=== PATIENT | female | born 1985 | race Caucasian/White ===

== ENCOUNTER 2016-06-16 02:09 | Emergency (ER) | payer OTHER, SELFPAY ==
[2016-06-16 02:25] VITALS: O2SAT 100
[2016-06-16] MEDS ORDERED: ATARAX 25 MG PO ONE (02:30)
[2016-06-16] MEDS ORDERED: ATARAX 25 MG ONE (02:35)
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
[2016-06-16 03:05] VITALS: BP 115/60; PULSE 80
== END 2016-06-16 03:00 | disposition home or self-care (01) ==
LOC: ED 02:09
DX: B86 Scabies (principal)
CPT/HCPCS: 99281; 99283; A9270-GY

== ENCOUNTER 2016-09-17 22:16 | Observation (INO) | payer OTHER, SELFPAY ==
[2016-09-17] MEDS ORDERED: Sodium Chloride 0.9% 1000 ML 1,000 ML IV STA (22:48)
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
[2016-09-17] MEDS ORDERED: Sodium Chloride 0.9% 1000 ML 1,000 ML ONE (23:07)
[2016-09-17 23:12] LABS: A-aADO2 -5; ARTERIAL BLD GAS O2 SATURATION 99.1 % (95-100); ARTERIAL BLOOD GAS BASE EXCESS 0.6 (-2.0-2.0); ARTERIAL BLOOD GAS FIO2 21 %; ARTERIAL BLOOD GAS PO2 111 mmHg (75-100); ARTERIAL BLOOD GAS pH 7.45 (7.35-7.45)
[2016-09-17 23:14] LABS: BASOPHIL % 0.4 % (0.0-0.4); Eosinophil % 2.6 % (0.00-5.0); Lymphocytes % 30.8 % (24.0-44.0); Mean Cell Volume 90.1 fl (78-100); Mean Corpuscular Hemoglobin 29.8 pg (26-32); Mean Platelet Volume 10.1 fl (6-9.5); Monocytes % 8.2 % (0.0-12.0); Platelet Count 225 K/mm3 (150-450); Red Blood Count 4.13 M/mm3 (4.1-5.4); Red Cell Distribution Width 12.2 % (11.5-14.0); White Blood Count 9.1 K/mm3 (4.0-10.5)
[2016-09-17 23:34] LABS: Bilirubin NEGATIVE (NEGATIVE); Collection Type CATH; Glucose NEGATIVE (NEGATIVE); Leukocyte Esterase NEGATIVE (NEGATIVE)
[2016-09-17 23:35] LABS: ADD URINE CULTURE? NO (NO); Blood TRACE HEMOLYZED Ery/ul (0-5); COMPLETE URINE MICROSCOPIC? YES; Epithelial Cells RARE /HPF (FEW); Mucus SLIGHT /HPF (NEGATIVE); WBC 0-2 /HPF (0-5)
[2016-09-17 23:38] LABS: ALKALINE PHOSPHATASE 37 U/L (46-116); ANION GAP 15.4 MEQ/L (5-15); BLOOD UREA NITROGEN 11 mg/dL (9-20); CHLORIDE 105 mEq/L (98-107); Carbon Dioxide 24.6 mEq/L (21-32); ETHYL ALCOHOL < 0.010 % (0.00-0.01); Glucose 91 MG/DL (70-110); Potassium 3.5 mEq/L (3.5-5.1); SGOT/AST 13 U/L (15-37); SGPT/ALT 10 U/L (12-78); SODIUM 142 mEq/L (136-145); Total Protein 6.8 gm/dL (6.4-8.2)
[2016-09-17 23:46] LABS: ACETAMINOPHEN < 2.0 ug/ml (10-30)
[2016-09-18] MEDS ORDERED: TYLENOL 325 MG PO PRN (00:31)
[2016-09-18] MEDS ORDERED: Zofran 4 MG/2 ML VIAL IV ONE (00:37)
[2016-09-18] MEDS: Sodium Chloride 0.9% 1000 ML 1,000 ML IV SCH ×2 (02:18→09:27)
[2016-09-18] MEDS ORDERED: Zofran 4 MG/2 ML VIAL IV PRN (02:21)
[2016-09-18 03:41] LABS: ACETAMINOPHEN < 2.0 ug/ml (10-30)
[2016-09-18 07:21] VITALS: O2SAT 100
[2016-09-18 08:27] VITALS: BP 104/58; PULSE 63
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
[2016-09-18] MEDS ORDERED: NON-FORMULARY ITEM (Citalopram Hydrobromide [Celexa] 10 MG) PO SCH (10:00)
[2016-09-18] MEDS ORDERED: ceLEXa 20 MG PO SCH (10:00)
== END 2016-09-18 10:33 | disposition left against medical advice (07) ==
LOC: ED 22:16 → UNDOADMOB 09-18 01:20 → ICU 09-18 01:20 → UNDODISOB 09-18 10:33
PROVIDERS: ADMIT Family Medicine; ATTEND Family Medicine
DX: T42.4X1A Poisoning by benzodiazepines, accidental (unintentional), initial encounter (principal); F41.8 Other specified anxiety disorders
CPT/HCPCS: 36000; 36415; 36600; 80053; 80307; 81000; 82375; 82803; 84703; 85025; 93005; 93268; 96360; 99285; G0378; G0481; P9612; A9270-GY

== ENCOUNTER 2016-10-25 21:45 | Emergency (ER) | payer OTHER, SELFPAY ==
[2016-10-25] MEDS ORDERED: Tylenol #3 Tablet PO ONE (22:09)
[2016-10-25 22:14] VITALS: PULSE 78; O2SAT 98
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
[2016-10-25] MEDS ORDERED: Tylenol #3 Tablet ONE (22:18)
[2016-10-25 23:06] VITALS: BP 120/68
--- NOTE | 2016-10-26 08:36 | XRAY ---
Indication: Pain following crush injury. Comparison: None 3 views of the left ankle demonstrates normal bones, articulation, and soft tissues.
--- NOTE | 2016-10-26 08:37 | XRAY ---
Indication: Pain following crush injury. Comparison: None 3 views nonweightbearing views of the left foot demonstrates mild degenerative changes of the first metatarsal cuneiform articulation. No other bony, articular, or soft tissue abnormalities.
== END 2016-10-25 23:07 | disposition home or self-care (01) ==
LOC: ED 21:45
DX: S90.02XA Contusion of left ankle, initial encounter (principal); S90.32XA Contusion of left foot, initial encounter; W22.8XXA Striking against or struck by other objects, initial encounter
CPT/HCPCS: 73610; 73630; 99284; A9270-GY

== ENCOUNTER 2018-02-26 15:49 | Emergency (ER) | payer OTHER, SELFPAY ==
[2018-02-26 16:03] VITALS: BP 137/84; PULSE 90; O2SAT 100
--- NOTE | 2018-02-26 16:14 | ERPHSYRPT ---
- History of Present Illness Time Seen by Provider: 02/26/18 16:00 Source: patient Exam Limitations: no limitations Patient Subjective Stated Complaint: pt reports sore throat and right ear pain for 3 days. Triage Nursing Assessment: pt is aox3, pupils perrl, afebrile, resps easy and non labored, radial pulses strong and equal, skin pink warm dry. redness noted to the right external ear and canal with pain. redness also noted to the throat. Physician History: 32 y/o white female presents with 2 to 3 days of right earache and sore throat. pt does clean ear canals with q tips. no fever. mild cough. Timing/Duration: gradual onset ENT Location: ear (R), throat Prearrival Treatment: over the counter meds Modifying Factors: Improves With: nothing Associated Symptoms: ear pain (R), sore throat Allergies/Adverse Reactions: No Known Drug Allergies Allergy (Verified 10/25/16 22:06) Home Medications: Alprazolam [Xanax] 0.5 mg PO TID 09/17/16 [History] Citalopram Hydrobromide [Celexa] 20 mg PO DAILY 09/17/16 [History] Hydrocodone Bit/Acetaminophen [[place] 5-325 Tablet] 1 each PO Q6H PRN PRN [History] Hx Tetanus, Diphtheria Vaccination/Date Given: No Hx Influenza Vaccination/Date Given: No Hx Pneumococcal Vaccination/Date Given: No Immunizations Up to Date: Yes - Review of Systems Constitutional: No Symptoms Eyes: No Symptoms Ears, Nose, & Throat: Ear Pain (right), Throat Pain Respiratory: Cough (mild), Dyspnea, Stridor, Wheezing Cardiac: No Symptoms Abdominal/Gastrointestinal: No Symptoms Genitourinary Symptoms: No Symptoms Musculoskeletal: No Symptoms Skin: No Symptoms Neurological: No Symptoms Psychological: No Symptoms Endocrine: No Symptoms Hematologic/Lymphatic: No Symptoms Immunological/Allergic: No Symptoms All Other Systems: Reviewed and Negative - Past Medical History Pertinent Past Medical History: Yes Neurological History: No Pertinent History ENT History: No Pertinent History Cardiac History: No Pertinent History Respiratory History: No Pertinent History Endocrine Medical History: No Pertinent History Musculoskeletal History: No Pertinent History GI Medical History: No Pertinent History History: No Pertinent History Psycho-Social History: Anxiety, Depression Female Reproductive Disorders: No Pertinent History - Past Surgical History Past Surgical History: Yes Neuro Surgical History: No Pertinent History Cardiac: No Pertinent History Respiratory: No Pertinent History Gastrointestinal: No Pertinent History Genitourinary: No Pertinent History Musculoskeletal: No Pertinent History Female Surgical History: Breast Implant Other Surgical History: breast implants - Social History Smoking Status: Current every day smoker How long have you smoked: 15 YRS Exposure to second hand smoke: No Drug Use: none Patient Lives Alone: No - Female History Hx Last Menstrual Period: 01/26/18 Hx Now: (unk) - Nursing Vital Signs Nursing Vital Signs: Initial Vital Signs Temperature 99.5 F 02/26/18 15:53 Pulse Rate 90 02/26/18 15:53 Respiratory Rate 20 02/26/18 15:53 Blood Pressure 137/84 02/26/18 15:53 O2 Sat by Pulse Oximetry 100 02/26/18 15:53 Pain Scale Pain Intensity 10 - Physical Exam General Appearance: mild distress, alert, anxiety Eye Exam: bilateral eye: normal inspection, PERRL, EOMI Ear Exam: right ear: auricle normal, erythema, foreign body (strands of cotton) , swelling, tenderness, TM red, left ear: canal normal, TM normal Nasal Exam: normal inspection Throat Exam: normal, moist mucus membranes, pharynx tenderness Neck Exam: normal inspection, non-tender, supple, full range of motion Cardiovascular/Respiratory Exam: chest non-tender, normal breath sounds, regular rate/rhythm, heart sounds normal Abdominal Exam: non-tender, soft, no organomegaly, no hernia, No guarding, No tenderness Neurologic Exam: alert, oriented x 3, cooperative, 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 purchase debrox over the counter ear solution to irrigate out your right ear. follow up with primary doctor for persistent symptoms Prescriptions: Amoxicillin 500 mg Cap [Amoxil 500 mg] 500 mg PO TID #30 capsule Hydrocodone Bit/Acetaminophen [Hydrocodone-Acetaminophen Soln] 10 ml PO Q6H # 120 ml Prednisone 10 mg [Deltasone 10 mg] 10 mg PO TID #12 tablet
== END 2018-02-26 16:31 | disposition home or self-care (01) ==
LOC: ED 15:49
DX: H66.91 Otitis media, unspecified, right ear (principal); J02.9 Acute pharyngitis, unspecified; T16.1XXA Foreign body in right ear, initial encounter; Z79.899 Other long term (current) drug therapy
CPT/HCPCS: 99283

== ENCOUNTER 2018-05-15 14:55 | Emergency (ER) | payer OTHER ==
[2018-05-15] MEDS ORDERED: TYLENOL 325 MG PO STA (15:11)
[2018-05-15] MEDS ORDERED: ZOFRAN ODT 4 MG PO ONE (15:14)
[2018-05-15] MEDS ORDERED: TYLENOL 325 MG ONE (15:31)
[2018-05-15] MEDS ORDERED: ZOFRAN ODT 4 MG ONE (15:31)
[2018-05-15 15:32] LABS: BASOPHIL % 0.2 % (0.0-0.4); Basophil (Absolute #) 0.01 (0-0.4); Eosinophil % 0.4 % (0.00-5.0); Eosinophil (Absolute #) 0.02 (0-0.5); Granulocyte Absolute (ANC) 4.81 (1.4-6.9); Granulocytes % 88.1 % (36.0-66.0); Hemoglobin 12.3 gm/dl (12.0-16.0); Lymphocyte (Absolute #) 0.34 (1.0-4.6); Lymphocytes % 6.2 % (24.0-44.0); Mean Cell Volume 89.4 fl (78-100); Mean Corpuscular Hemoglobin 29.7 pg (26-32); Mean Corpuscular Hgb Concent. 33.2 g/dl (32-36); Mean Platelet Volume 9.6 fl (6-9.5); Monocyte (Absolute #) 0.28 (0.0-1.3); Monocytes % 5.1 % (0.0-12.0); Platelet Count 166 K/mm3 (150-450); Red Blood Count 4.14 M/mm3 (4.1-5.4); White Blood Count 5.5 K/mm3 (4.0-10.5)
[2018-05-15 15:44] LABS: ALBUMIN 3.8 g/dL (3.5-5.0); ALKALINE PHOSPHATASE 48 U/L (38-126); BLOOD UREA NITROGEN 16 mg/dL (7-17); CHLORIDE 103 mmol/L (98-107); Calcium 8.5 mg/dL (8.4-10.2); Carbon Dioxide 28 mmol/L (22-30); Creatinine 1 0.84 mg/dL (0.52-1.04); Glucose 90 mg/dL (74-106); Potassium 4.5 mmol/L (3.5-5.1); SGOT/AST 37 U/L (14-36); SGPT/ALT 22 U/L (0-35); SODIUM 138 mmol/L (137-145); Total Protein 6.6 g/dL (6.3-8.2)
[2018-05-15 15:54] LABS: Group A Strep NEGATIVE (NEGATIVE)
[2018-05-15 15:56] LABS: Slide Review 1 YES
[2018-05-15 16:00] LABS: INFLUENZA A POSITIVE (NEGATIVE); INFLUENZA B NEGATIVE (NEGATIVE); RESPIRATORY SYNCTIAL VIRUS NEGATIVE (Negative)
[2018-05-15] MEDS ORDERED: Tamiflu 75MG Capsule PO ONE ×2 (16:03→16:11)
[2018-05-15 16:11] VITALS: PULSE 107; O2SAT 100
[2018-05-15 17:37] LABS: Appearance SLIGHTLY CLOUDY (CLEAR); Bilirubin NEGATIVE (NEGATIVE); Blood SMALL Ery/ul (0-5); Epithelial Cells FEW /HPF (FEW); Glucose NEGATIVE (NEGATIVE); Ketones SMALL (NEGATIVE); Leukocyte Esterase NEGATIVE (NEGATIVE); Mucus SLIGHT /HPF (NEGATIVE); Nitrite NEGATIVE (NEGATIVE); Protein,Urine Dip 30 (Negative); Specific Gravity 1.026 (1.005-1.025); Urobilinogen 2 mg/dL (0-1)
[2018-05-15 17:39] LABS: Bacteria NONE SEEN /HPF (NEGATIVE)
--- NOTE | 2018-05-15 17:49 | ERPHSYRPT ---
- History of Present Illness Source: patient Exam Limitations: no limitations Patient Subjective Stated Complaint: pt here for fever started yesterday, she vomited x1 today and states she has to strain to void, Triage Nursing Assessment: pt alert,walked in, resp easy, skin w/d/p has dressing to right ear from surgery on wednesday Physician History: Pt is a 33 y/o female that presented to the ED with complains of fever for two days. Pt states, had R ear surgery (Cochlear implant), on Wednesday, and she is taking keflex prescribed by ENT. She started developing fever for the last couple of days, and presented to the ER. Pt states, her and child have fever as well, and she wondered if she got "something" from them. No SOB or cough. No change in ear discharge. No N/V/D or abdominal pain. No dysuria, frequency and urgency. 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 Associated Symptoms: denies symptoms Allergies/Adverse Reactions: No Known Drug Allergies Allergy (Verified 05/15/18 15:07) Home Medications: Cephalexin Mh 500 mg [Keflex 500 mg] 500 mg BID 05/15/18 [History] Hydrocodone/Acetaminophen [Hydrocodone-Acetamin 7.5-325] 1 tab QID 05/15/18 [ History] Promethazine HCl 25 mg [Phenergan 25 mg] 25 mg DAILY 05/15/18 [History] Quetiapine Fumarate 50 mg DAILY 05/15/18 [History] diazePAM [Diazepam] 10 mg DAILY 05/15/18 [History] Hx Tetanus, Diphtheria Vaccination/Date Given: No Hx Influenza Vaccination/Date Given: No Hx Pneumococcal Vaccination/Date Given: No Immunizations Up to Date: Yes - Review of Systems Constitutional: Fever Eyes: No Symptoms Ears, Nose, & Throat: Ear Pain (R secondary to surgery) Respiratory: No Cough, No Dyspnea Cardiac: No Chest Pain, No Edema, No Syncope Abdominal/Gastrointestinal: No Abdominal Pain, No Nausea, No Vomiting, No Diarrhea Genitourinary Symptoms: No Dysuria Musculoskeletal: No Back Pain, No Neck Pain Neurological: No Dizziness, No Focal Weakness, No Sensory Changes - Past Medical History Pertinent Past Medical History: Yes Neurological History: No Pertinent History ENT History: No Pertinent History Cardiac History: No Pertinent History Respiratory History: No Pertinent History Endocrine Medical History: No Pertinent History Musculoskeletal History: No Pertinent History GI Medical History: No Pertinent History History: No Pertinent History Psycho-Social History: Anxiety, Depression Female Reproductive Disorders: No Pertinent History - Past Surgical History Past Surgical History: Yes Neuro Surgical History: No Pertinent History Cardiac: No Pertinent History Respiratory: No Pertinent History Gastrointestinal: No Pertinent History Genitourinary: No Pertinent History Musculoskeletal: No Pertinent History Female Surgical History: Breast Implant Other Surgical History: breast implants, right ear surgery - Social History Smoking Status: Current every day smoker How long have you smoked: 15 YRS Exposure to second hand smoke: Yes Drug Use: none Patient Lives Alone: No - Female History Hx Last Menstrual Period: wednesday Hx Now: No - Nursing Vital Signs Nursing Vital Signs: Initial Vital Signs Temperature 100.6 F 05/15/18 15:02 Pulse Rate 116 H 05/15/18 15:02 Respiratory Rate 16 05/15/18 15:02 Blood Pressure 116/64 05/15/18 15:02 O2 Sat by Pulse Oximetry 96 05/15/18 15:02 Pain Scale Pain Intensity 0 - Physical Exam General Appearance: mild distress Eye Exam: PERRL/EOMI ENT Exam: No pharyngeal erythema, No tonsillar exudate Neck Exam: supple, full range of motion, No meningismus Respiratory Exam: normal breath sounds, lungs clear, no respiratory distress Cardiovascular/Chest Exam: normal heart sounds, regular rate/rhythm, No murmur, No edema Gastrointestinal/Abdominal Exam: soft, non tender, no distention Extremity Exam: non-tender, normal range of motion, normal inspection, normal capillary refill Neurologic Exam: alert, oriented x 3, 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, 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, normal mood/affect, sensation nml, No motor deficits SpO2: 100 - Course Nursing assessment & vital signs reviewed: Yes - Radiology Exams Chest X-ray Interpretation: Interpreted by me (No PNA, clear chest) Ordered Tests: Active Orders 24 hr Category Date Time Status CHEST 2 VIEWS (PA AND LAT) Stat Exams 05/15/18 15:12 Taken BLOOD CULTURE Stat Lab 05/15/18 15:45 Received CBC W DIFF Stat Lab 05/15/18 15:30 Completed CMP Stat Lab 05/15/18 15:25 Completed CULTURE,URINE Stat Lab 05/15/18 17:33 Received HCG,QUALITATIVE URINE Stat Lab 05/15/18 17:33 Completed Lactic Acid Stat Lab 05/15/18 15:11 Completed UA W/RFX UR CULTURE Stat Lab 05/15/18 17:33 Completed Medication Summary Discontinued Medications Generic Name Dose Route Start Last Admin Trade Name Kaylah PRN Reason Stop Dose Admin Acetaminophen 975 mg 05/15/18 15:11 05/15/18 15:31 Tylenol 325 Mg PO 05/15/18 15:12 975 mg STAT STA Administration Acetaminophen Confirm 05/15/18 15:31 Tylenol 325 Mg Administered 05/15/18 15:32 Dose 975 mg .ROUTE .STK-MED ONE Ondansetron HCl 4 mg 05/15/18 15:14 05/15/18 15:32 Zofran Odt 4 Mg PO 05/15/18 15:15 4 mg STAT ONE Administration Ondansetron HCl Confirm 05/15/18 15:31 Zofran Odt 4 Mg Administered 05/15/18 15:32 Dose 4 mg .ROUTE .STK-MED ONE Oseltamivir Phosphate 75 mg 05/15/18 16:03 05/15/18 16:13 Tamiflu 75mg Capsule PO 05/15/18 16:04 75 mg STAT ONE Administration Oseltamivir Phosphate Confirm 05/15/18 16:11 Tamiflu 75mg Capsule Administered 05/15/18 16:12 Dose 75 mg PO .STK-MED ONE Lab/Rad Data: Laboratory Result Diagrams 05/15/18 15:30 05/15/18 15:25 Laboratory Results 05/15/18 05/15/18 05/15/18 Range/Units 17:33 17:33 15:30 WBC 5.5 (4.0-10.5) K/mm3 RBC 4.14 (4.1-5.4) M/mm3 Hgb 12.3 (12.0-16.0) gm/dl Hct 37.0 (35-47) % MCV 89.4 (78-100) fl MCH 29.7 (26-32) pg MCHC 33.2 (32-36) g/dl RDW 12.0 (11.5-14.0) % Plt Count 166 (150-450) K/mm3 MPV 9.6 H (6-9.5) fl Gran % 88.1 H (36.0-66.0) % Eos # (Auto) 0.02 (0-0.5) Absolute Lymphs (auto) 0.34 L (1.0-4.6) Absolute Monos (auto) 0.28 (0.0-1.3) Lymphocytes % 6.2 L (24.0-44.0) % Monocytes % 5.1 (0.0-12.0) % Eosinophils % 0.4 (0.00-5.0) % Basophils % 0.2 (0.0-0.4) % Absolute Granulocytes 4.81 (1.4-6.9) Basophils # 0.01 (0-0.4) Sodium (137-145) mmol/L Potassium (3.5-5.1) mmol/L Chloride (98-107) mmol/L Carbon Dioxide (22-30) mmol/L Anion Gap (5-15) MEQ/L BUN (7-17) mg/dL Creatinine (0.52-1.04) mg/dL Estimated GFR ML/MIN Glucose (74-106) mg/dL Lactic Acid (0.4-2.0) Calcium (8.4-10.2) mg/dL Total Bilirubin (0.2-1.3) mg/dL AST (14-36) U/L ALT (0-35) U/L Alkaline Phosphatase (38-126) U/L Serum Total Protein (6.3-8.2) g/dL Albumin (3.5-5.0) g/dL Urine Color YELLOW (YELLOW) Urine Appearance SLIGHTLY CLOUDY (CLEAR) Urine pH 6.0 (5-6) Ur Specific [place] 1.026 (1.005-1.025) Urine Protein 30 (Negative) Urine Ketones SMALL (NEGATIVE) Urine Blood SMALL (0-5) Bacilio/ul Urine Nitrite NEGATIVE (NEGATIVE) Urine Bilirubin NEGATIVE (NEGATIVE) Urine Urobilinogen 2 (0-1) mg/dL Ur Leukocyte Esterase NEGATIVE (NEGATIVE) Urine WBC (Auto) 3-5 (0-5) /HPF Urine RBC (Auto) 6-10 (0-2) /HPF U Epithel Cells (Auto) FEW (FEW) /HPF Urine Bacteria (Auto) NONE SEEN (NEGATIVE) /HPF Urine Mucus (Auto) SLIGHT (NEGATIVE) /HPF Urine Culture Reflexed YES (NO) Urine Glucose NEGATIVE (NEGATIVE) mg/dL Urine HCG, Qual NEGATIVE (Negative) Influenza Type A Ag (NEGATIVE) Influenza Type B Ag (NEGATIVE) RSV (PCR) (Negative) Group A Strep Antibody (NEGATIVE) Slides for Path Review YES 05/15/18 05/15/18 05/15/18 Range/Units 15:25 15:25 15:11 WBC (4.0-10.5) K/mm3 RBC (4.1-5.4) M/mm3 Hgb (12.0-16.0) gm/dl Hct (35-47) % MCV (78-100) fl MCH (26-32) pg MCHC (32-36) g/dl RDW (11.5-14.0) % Plt Count (150-450) K/mm3 MPV (6-9.5) fl Gran % (36.0-66.0) % Eos # (Auto) (0-0.5) Absolute Lymphs (auto) (1.0-4.6) Absolute Monos (auto) (0.0-1.3) Lymphocytes % (24.0-44.0) % Monocytes % (0.0-12.0) % Eosinophils % (0.00-5.0) % Basophils % (0.0-0.4) % Absolute Granulocytes (1.4-6.9) Basophils # (0-0.4) Sodium 138 (137-145) mmol/L Potassium 4.5 (3.5-5.1) mmol/L Chloride 103 (98-107) mmol/L Carbon Dioxide 28 (22-30) mmol/L Anion Gap 11.0 (5-15) MEQ/L BUN 16 (7-17) mg/dL Creatinine 0.84 (0.52-1.04) mg/dL Estimated GFR > 60.0 ML/MIN Glucose 90 (74-106) mg/dL Lactic Acid 0.8 (0.4-2.0) Calcium 8.5 (8.4-10.2) mg/dL Total Bilirubin 0.30 (0.2-1.3) mg/dL AST 37 H (14-36) U/L ALT 22 (0-35) U/L Alkaline Phosphatase 48 (38-126) U/L Serum Total Protein 6.6 (6.3-8.2) g/dL Albumin 3.8 (3.5-5.0) g/dL Urine Color (YELLOW) Urine Appearance (CLEAR) Urine pH (5-6) Ur Specific [place] (1.005-1.025) Urine Protein (Negative) Urine Ketones (NEGATIVE) Urine Blood (0-5) Bacilio/ul Urine Nitrite (NEGATIVE) Urine Bilirubin (NEGATIVE) Urine Urobilinogen (0-1) mg/dL Ur Leukocyte Esterase (NEGATIVE) Urine WBC (Auto) (0-5) /HPF Urine RBC (Auto) (0-2) /HPF U Epithel Cells (Auto) (FEW) /HPF Urine Bacteria (Auto) (NEGATIVE) /HPF Urine Mucus (Auto) (NEGATIVE) /HPF Urine Culture Reflexed (NO) Urine Glucose (NEGATIVE) mg/dL Urine HCG, Qual (Negative) Influenza Type A Ag POSITIVE (NEGATIVE) Influenza Type B Ag NEGATIVE (NEGATIVE) RSV (PCR) NEGATIVE (Negative) Group A Strep Antibody NEGATIVE (NEGATIVE) Slides for Path Review - Progress Progress: unchanged Progress Note: 05/15/18 17:52 Pt had Influenza A positive test. All other work up was negative. Tamiflu 75 mg was given in the ED. Pt should continue her ABX as ordered by ENT, and take 5 days of Tamiflu. A prescription will be e-scribed. Pt should f/u with PCP next week. Discussed with : Mingo Will see patient in: office Counseled pt/family regarding: need for follow-up - Departure Time of Disposition: 17:54 Departure Disposition: Home Clinical Impression: Influenza A Condition: Stable Critical Care Time: No Referrals: RUDDY ZHENG [Primary Care Provider] - Additional Instructions: Take meds as ordered. F/U with PCP next week. Prescriptions: Oseltamivir 75 mg [Tamiflu 75MG Capsule] 75 mg PO BID 5 Days #10 cap
[2018-05-15 17:54] VITALS: BP 111/73
--- NOTE | 2018-05-15 21:58 | XRAY ---
Indication: Fever. Comparison: None PA/lateral chest demonstrates subtle left mid to lower lung interstitial alveolar opacity and small effusion. Remaining heart and right lung normal. Bony thorax intact with mild dextroscoliosis. Comment: Left lung findings not reported on preliminary interpretation by the ER clinician. Telephone report given to Dr. Burnett at 2154 hrs. on May 15, 2018.
== END 2018-05-15 18:10 | disposition home or self-care (01) ==
LOC: ED 14:55
DX: J10.1 Influenza due to other identified influenza virus with other respiratory manifestations (principal); F41.8 Other specified anxiety disorders
CPT/HCPCS: 36415; 71046; 80053; 81001; 83605; 84703; 85025; 87040; 87086; 87631; 87651; 99284; Q0162; A9270-GY

== ENCOUNTER 2018-08-15 15:42 | Emergency (ER) | payer OTHER ==
[2018-08-15 16:43] VITALS: BP 133/86; PULSE 94; O2SAT 100
--- NOTE | 2018-08-15 16:56 | ERPHSYRPT ---
- History of Present Illness Time Seen by Provider: 08/15/18 16:24 Source: patient Exam Limitations: clinical condition Patient Subjective Stated Complaint: Patient states she has had a sore throat since last night Triage Nursing Assessment: Ceaasr ambulated into ER complaint of sore throat since last Wednesday Physician History: PATIENT COMPLAINS OF SORETHROAT FOR 2-3 DAYS. DENIES FEVER, CHILLS, DIFFICULTY BREATHING OR SWALLOWING. Timing/Duration: gradual onset Severity: moderate ENT Location: throat Prearrival Treatment: no prearrival treatment Modifying Factors: Improves With: nothing Associated Symptoms: denies symptoms Allergies/Adverse Reactions: No Known Drug Allergies Allergy (Verified 08/15/18 16:10) Home Medications: Quetiapine Fumarate 50 mg DAILY 05/15/18 [History] diazePAM [Diazepam] 10 mg DAILY 05/15/18 [History] Hx Tetanus, Diphtheria Vaccination/Date Given: No Hx Influenza Vaccination/Date Given: No Hx Pneumococcal Vaccination/Date Given: No Immunizations Up to Date: Yes - Review of Systems Constitutional: No Symptoms Eyes: No Symptoms Ears, Nose, & Throat: Throat Pain Respiratory: No Symptoms Cardiac: No Symptoms Neurological: No Symptoms Psychological: No Symptoms Endocrine: No Symptoms - Past Medical History Pertinent Past Medical History: Yes Neurological History: No Pertinent History ENT History: No Pertinent History Cardiac History: No Pertinent History Respiratory History: No Pertinent History Endocrine Medical History: No Pertinent History Musculoskeletal History: No Pertinent History GI Medical History: No Pertinent History History: No Pertinent History Psycho-Social History: No Pertinent History Female Reproductive Disorders: No Pertinent History - Past Surgical History Past Surgical History: No Neuro Surgical History: No Pertinent History Cardiac: No Pertinent History Respiratory: No Pertinent History Gastrointestinal: No Pertinent History Genitourinary: No Pertinent History Musculoskeletal: No Pertinent History Female Surgical History: No Pertinent History Other Surgical History: patient reports step throat in May this year - Social History Smoking Status: Current every day smoker How long have you smoked: 13 years Exposure to second hand smoke: Yes Drug Use: none Patient Lives Alone: No - Female History Hx Last Menstrual Period: 07/29/2018 Hx Now: No - Nursing Vital Signs Nursing Vital Signs: Initial Vital Signs Temperature 99.2 F 08/15/18 15:58 Pulse Rate 99 H 08/15/18 15:58 Respiratory Rate 18 08/15/18 15:58 O2 Sat by Pulse Oximetry 98 08/15/18 15:58 Pain Scale Pain Intensity 8 - Physical Exam SpO2: 100 Lab/Rad Data: Laboratory Results 08/15/18 Range/Units Unknown Group A Strep Antibody POSITIVE (NEGATIVE) - Progress Progress Note: 08/15/18 16:53 STREP SCREEN POSITIVE Counseled pt/family regarding: lab results, need for follow-up - Departure Departure Disposition: Home Clinical Impression: STREP PHARYNGITIS Condition: Stable Critical Care Time: No Referrals: RUDDY ZHENG [Primary Care Provider] - Additional Instructions: ANTIBIOTIC AUGMENTIN 875MG TWICE DAILY FOR 10 DAYS. TYLENOL OR MOTRIN FOR PAIN OR FEVER. FOLLOWUP WITH YOUR PRIMARY CARE PROVIDER FOR EVALUATION IN 1 WEEK. Prescriptions: Amox Tr/Potass Clav. 875 mg [Augmentin 875-125 Tablet] 875 mg PO BID #20 tablet
== END 2018-08-15 17:06 | disposition home or self-care (01) ==
LOC: ED 15:42
DX: J02.0 Streptococcal pharyngitis (principal)
CPT/HCPCS: 87651; 99283

== ENCOUNTER 2019-09-14 20:36 | Emergency (ER) | payer OTHER ==
[2019-09-14 20:53] VITALS: O2SAT 99
--- NOTE | 2019-09-14 20:58 | ERPHSYRPT ---
- History of Present Illness Time Seen by Provider: 09/14/19 20:45 Source: patient Exam Limitations: no limitations Patient Subjective Stated Complaint: " I slipped and fell off my porch on Wednesday down 4 stairs striking my head and I passed out for a while. I have been vomiting and having nausea and dizziness also ". Triage Nursing Assessment: Pt presents to ER with a laceration to right occipical region of head. Pt does have a healing 3x0.5cm laceration noted. No active bleeding or drainage noted. Pt has been putting liquid bandage on wound and cleaning it daily with peroxide. Pt does complain of some nausea and periods of vomiting. Last time vomited was yesterday. Complains of dizziness and states she did have positive loss of conciousness after falling down approx 4 stairs and striking head on Wednesday. Pt is alert and oriented at this time. Resp are easy and lungs are clear. Pupils are PERRL 2mm bilaterally. Physician History: Patient is a 34-year-old female who presents to our ED for evaluation status post head injury with subsequent loss of consciousness. Patient states she was descending stairs 5 days ago. Patient fell hit her left posterior parietal scalp. Patient sustained a laceration. Patient did not seek medical attention. Patient manages injury at home independently. Patient applied liquid bandage and has been cleaning the area daily. Patient is here today because since the injury she has been experiencing some dizziness nausea and vomiting. Symptoms have been constant. No neck pain. Cervical spine cleared clinically. No other injuries reported. No associated numbness tingling or weakness. Pain is localized to the area of involvement. Pain worse with palpation. Pain improved with rest. Patient has been taking Tylenol for pain control. Patient is not on blood thinners. She is otherwise healthy. Patient voices no other complaints at this time. Occurred: days ago (5) Reason for Fall: slipped (Patient fell because it was dark. Slip was mechanical. It was not associated with any neuro or cardiovascular symptomology.) Allergies/Adverse Reactions: No Known Drug Allergies Allergy (Verified 09/14/19 20:54) Home Medications: diazePAM [Diazepam] 10 mg DAILY 05/15/18 [History] Hx Tetanus, Diphtheria Vaccination/Date Given: No Hx Influenza Vaccination/Date Given: No Hx Pneumococcal Vaccination/Date Given: No Immunizations Up to Date: No Travel Risk - International Travel Have you traveled outside of the country in past 3 weeks: No - Coronavirus Screening Are you exhibiting any of the following symptoms?: No Close contact with a COVID-19 positive Pt in past 14-21 Days: No - Review of Systems Constitutional: No Symptoms, No Fever, No Chills Eyes: No Symptoms Ears, Nose, & Throat: No Symptoms Respiratory: No Symptoms, No Cough, No Dyspnea Cardiac: No Symptoms, No Chest Pain, No Edema, No Syncope Abdominal/Gastrointestinal: No Symptoms, No Abdominal Pain, No Nausea, No Vomiting, No Diarrhea Genitourinary Symptoms: No Symptoms, No Dysuria Musculoskeletal: No Symptoms, No Back Pain, No Neck Pain Skin: No Symptoms, No Rash Neurological: No Symptoms, No Dizziness, No Focal Weakness, No Sensory Changes Psychological: No Symptoms Endocrine: No Symptoms Hematologic/Lymphatic: No Symptoms Immunological/Allergic: No Symptoms All Other Systems: Reviewed and Negative - Past Medical History Pertinent Past Medical History: Yes Neurological History: No Pertinent History ENT History: No Pertinent History Cardiac History: No Pertinent History Respiratory History: No Pertinent History Endocrine Medical History: No Pertinent History Musculoskeletal History: No Pertinent History GI Medical History: No Pertinent History History: No Pertinent History Psycho-Social History: Anxiety, Depression Female Reproductive Disorders: No Pertinent History - Past Surgical History Past Surgical History: Yes Neuro Surgical History: No Pertinent History Cardiac: No Pertinent History Respiratory: No Pertinent History Gastrointestinal: No Pertinent History Genitourinary: No Pertinent History Musculoskeletal: No Pertinent History Female Surgical History: No Pertinent History Other Surgical History: right ear - Social History Smoking Status: Current every day smoker How long have you smoked: 10 years Exposure to second hand smoke: No Drug Use: none Patient Lives Alone: No - Female History Hx Last Menstrual Period: 09/14/19 Hx Now: No - Nursing Vital Signs Nursing Vital Signs: Initial Vital Signs Temperature 98.3 F 09/14/19 20:42 Pulse Rate 100 H 09/14/19 20:42 Respiratory Rate 16 09/14/19 20:42 Blood Pressure 134/86 09/14/19 20:42 O2 Sat by Pulse Oximetry 99 09/14/19 20:42 Pain Scale Pain Intensity 10 - [place] Coma Score Best Eye Response ([place]): (4) open spontaneously Best Verbal Response ([place]): (5) oriented Best Motor Response ([place]): (6) obeys commands [place] Total: 15 - Physical Exam General Appearance: no apparent distress, alert Head Injury: lacerations (3 cm x 0.5 cm left posterior parietal scalp laceration. No active bleeding.) Eye Exam: PERRL/EOMI ENT Exam: airway nml Neck Exam: supple, normal inspection, No tenderness Respiratory/Chest Exam: normal breath sounds, No chest tenderness, No respiratory distress Cardiovascular Exam: normal heart sounds, regular rate/rhythm Gastrointestinal Exam: soft, No tenderness, No distention, No guarding, No ecchymosis Back Exam: normal inspection, No vertebral tenderness Extremity Exam: normal inspection, normal range of motion, pelvis stable, No deformities Neurologic Exam: alert, oriented x 3, cooperative, sensation nml, No motor deficits, No sensory deficit, No disoriented, No confusion Skin Exam: normal color, warm, dry SpO2 Interpretation: normal SpO2: 99 O2 Delivery: Room Air - Course Nursing assessment & vital signs reviewed: Yes - CT Exams Head CT Interpretation: Tele-radiologist Report (No acute intracranial pathology. Right mastoid air cell opacification. Patient states she has a history of mastoid surgery and attributes these findings to her previous surgery. She has no mastoid pain or tenderness at all.) Ordered Tests: Active Orders 24 hr Category Date Time Status HEAD WITHOUT CONTRAST [CT] Stat Exams 09/14/19 20:54 Taken HCG,QUALITATIVE URINE Stat Lab 09/14/19 21:30 Completed Medication Summary Discontinued Medications Generic Name Dose Route Start Last Admin Trade Name Freq PRN Reason Stop Dose Admin Ketorolac Tromethamine 30 mg 09/14/19 21:08 09/14/19 22:23 Toradol 30 Mg Injection IM 09/14/19 21:09 30 mg STAT ONE Administration Ketorolac Tromethamine Confirm 09/14/19 21:12 Toradol 30 Mg Injection Administered 09/14/19 21:13 Dose 30 mg .ROUTE .STLiftago-Mashery ONE Lab/Rad Data: Laboratory Results 09/14/19 Range/Units 21:30 Urine HCG, Qual NEGATIVE (Negative) - Progress Progress: improved Progress Note: 09/14/19 21:07 Patient reassessed. Repeat neuro exam within normal limits. CT head negative for acute intracranial pathology. No indication for laceration repair at this time. The laceration is outside of the 24-hour window. Closing the laceration at this time would increase the risk of infection. The laceration appears to be healing well. Patient will continue local wound care. Patient symptoms of nausea vomiting and dizziness are likely due to a postconcussive syndrome following loss of consciousness from a head injury. There are no neuro deficits otherwise. Patient advised to follow-up with primary care doctor within 48 hours for reevaluation. No indication for further work-up at this time. - Departure Departure Disposition: Home Clinical Impression: Scalp laceration, Concussion, Fall down stairs, LOC (loss of consciousness), Head injury Condition: Stable Critical Care Time: No Referrals: RUDDY ZHENG [Primary Care Provider] - Instructions: Wound Care Additional Instructions: Discharge/Care Plan ANASTASIIA LANGLEY JESUS was seen on 09/14/19 in the Emergency Room. The patient was counseled regarding Diagnosis,Lab results, Imaging studies, need for follow up and when to return to the Emergency Room. Prescriptions given: Discharge Note I have spoken with the patient and/or caregivers. I have explained the patient's condition, diagnosis and treatment plan based on the information available to me at this time. I have answered the patient's and/or caregiver's questions and addressed any concerns. The patient and/or caregivers have as good understanding of the patient's diagnosis, condition and treatment plan as can be expected at this point. The vital signs have been stable. The patient's condition is stable and appropriate for discharge from the emergency department. The patient will pursue further outpatient evaluation with the primary care physician or other designated or consulting physician as outlined in the discharge instructions. The patient and/or caregivers are agreeable to this plan of care and follow-up instructions have been explained in detail. The patient and/or caregivers have received these instruction. The patient/and or caregivers are aware that any significant change in condition or worsening of symptoms sh ould prompt an immediate return to this or the closest emergency department or call 911.
[2019-09-14] MEDS ORDERED: TORAdol 30 mg Injection IM ONE (21:08)
[2019-09-14] MEDS ORDERED: TORAdol 30 mg Injection ONE (21:12)
[2019-09-14 22:27] VITALS: BP 112/74; PULSE 80
--- NOTE | 2019-09-15 08:46 | XRAY ---
Indication: Left posterior laceration following fall. Multiple contiguous axial images obtained through the head without contrast. Comparison: None Normal appearing brain parenchyma, ventricles, and bony calvarium. Complete opacification of the right mastoid air cells presumed inflammatory. Remaining visualized paranasal sinuses and left mastoid air cells are clear. Impression: Opacification of right mastoid air cells presumed inflammatory. Remaining CT head without contrast exam is normal.
== END 2019-09-14 22:42 | disposition home or self-care (01) ==
LOC: ED 20:36
DX: S01.01XA Laceration without foreign body of scalp, initial encounter (principal); S06.0X9A Concussion with loss of consciousness of unspecified duration, initial encounter; W17.89XA Other fall from one level to another, initial encounter; Y93.89 Activity, other specified; Y92.89 Other specified places as the place of occurrence of the external cause; Z79.899 Other long term (current) drug therapy
CPT/HCPCS: 70450; 84703; 96372; 99284; J1885

== ENCOUNTER 2021-12-05 07:58 | Emergency (ER) | payer OTHER ==
[2021-12-05 08:07] VITALS: BP 132/79; PULSE 80; O2SAT 99
--- NOTE | 2021-12-05 08:17 | ERPHSYRPT ---
- History of Present Illness Time Seen by Provider: 12/05/21 08:10 Source: patient Exam Limitations: no limitations Patient Subjective Stated Complaint: pt had all her teeth pulled on 12/03/2021 and is having severe mouth pain, dentist gave her toradol but states that it is not helping Triage Nursing Assessment: Pt brought to the ER by her , eri flores, rates pain as 10/10, all teeth removed 3 days ago, has Toradol, Tylenol and IBU for pain control but has no relief, last dose of Toradol at 0400 this AM Physician History: Patient is a 36-year-old white female who had 23 teeth extracted 3 days ago and it looks like she has an immediate denture for the top but has multiple extractions on the mandible sutures are in place very swollen. She says she was given Toradol which does not seem to be helping and she is on no antibiotic. Timing/Duration: day(s) (3) Severity: moderate Modifying Factors: Improves With: eating, ibuprofen Allergies/Adverse Reactions: No Known Drug Allergies Allergy (Verified 12/05/21 08:07) Home Medications: Bupropion HCl Xl 150 mg [Wellbutrin XL 150 MG] 150 mg PO DAILY 12/05/21 [History] Ketorolac Trometh 10 mg Tab [TORAdol 10 MG TABLET] 10 mg PO Q6H PRN 12/05/21 [History] Quetiapine Fumarate 100 mg [Seroquel 100 MG] 100 mg PO DAILY 12/05/21 [History] clonazePAM [Clonazepam] 0.5 mg PO BID PRN 12/05/21 [History] Hx Tetanus, Diphtheria Vaccination/Date Given: No Hx Influenza Vaccination/Date Given: No Hx Pneumococcal Vaccination/Date Given: No Travel Risk - International Travel Have you traveled outside of the country in past 3 weeks: No - Coronavirus Screening Are you exhibiting any of the following symptoms?: No Close contact with a COVID-19 positive Pt in past 14-21 Days: No - Vaccine Status Have you recieved a Covid-19 vaccination: No - Review of Systems Constitutional: No Fever, No Chills Eyes: No Symptoms Ears, Nose, & Throat: Mouth Pain, Mouth Swelling Respiratory: No Cough, No Dyspnea Cardiac: No Chest Pain, No Edema, No Syncope Abdominal/Gastrointestinal: No Abdominal Pain, No Nausea, No Vomiting, No Diarrhea Genitourinary Symptoms: No Dysuria Musculoskeletal: No Back Pain, No Neck Pain Skin: No Rash Neurological: No Dizziness, No Focal Weakness, No Sensory Changes Psychological: No Symptoms Endocrine: No Symptoms All Other Systems: Reviewed and Negative - Past Medical History Pertinent Past Medical History: Yes Neurological History: No Pertinent History ENT History: No Pertinent History Cardiac History: No Pertinent History Respiratory History: No Pertinent History Endocrine Medical History: No Pertinent History Musculoskeletal History: No Pertinent History GI Medical History: No Pertinent History History: No Pertinent History Psycho-Social History: Anxiety, Depression Female Reproductive Disorders: No Pertinent History - Past Surgical History Past Surgical History: Yes Neuro Surgical History: No Pertinent History Cardiac: No Pertinent History Respiratory: No Pertinent History Gastrointestinal: No Pertinent History Genitourinary: No Pertinent History Musculoskeletal: No Pertinent History Female Surgical History: No Pertinent History Other Surgical History: right ear - Social History Smoking Status: Current every day smoker How long have you smoked: 10 years Exposure to second hand smoke: Yes Drug Use: none Patient Lives Alone: No - Female History Hx Last Menstrual Period: 12/04/2021 Hx Now: No - Nursing Vital Signs Nursing Vital Signs: Initial Vital Signs Temperature 97.3 F 12/05/21 08:01 Pulse Rate 80 12/05/21 08:01 Blood Pressure 132/79 12/05/21 08:01 O2 Sat by Pulse Oximetry 99 12/05/21 08:01 Pain Scale Pain Intensity 10 - Physical Exam General Appearance: mild distress, alert Eye Exam: PERRL/EOMI, eyes nml inspection Ears, Nose, Throat Exam: normal ENT inspection, TMs normal, pharynx normal, moist mucous membranes, other (Multiple recent extractions looks like an immediate denture in the maxillary area) Neck Exam: normal inspection, non-tender, supple, full range of motion Respiratory Exam: normal breath sounds, lungs clear, No respiratory distress Cardiovascular Exam: regular rate/rhythm, normal heart sounds, normal peripheral pulses Gastrointestinal/Abdomen Exam: soft, normal bowel sounds, No tenderness, No mass Back Exam: normal inspection, normal range of motion, No CVA tenderness, No vertebral tenderness Extremity Exam: normal inspection, normal range of motion, pelvis stable Neurologic Exam: alert, oriented x 3, cooperative, normal mood/affect, nml cerebellar function, nml station & gait, sensation nml, No motor deficits Skin Exam: normal color, warm, dry, No rash Lymphatic Exam: No adenopathy SpO2: 99 - Progress Progress: unchanged - Departure Departure Disposition: Home Clinical Impression: Pain, dental Condition: Stable Critical Care Time: No Referrals: RUDDY ZHENG [Primary Care Provider] - Follow up/PCP as directed Instructions: Dental Pain (DC) Prescriptions: Hydrocodone/Acetaminophen [Hydrocodone-Acetamin 5-325 mg] 1 tab PO Q6HPRN PRN 3 Days #12 tablet MDD 4 PRN Reason: Pain clindamycin HCL [Cleocin HCl] 300 mg PO TID 7 Days #21 cap
== END 2021-12-05 08:20 | disposition home or self-care (01) ==
LOC: ED 07:58
DX: K08.89 Other specified disorders of teeth and supporting structures (principal); G89.18 Other acute postprocedural pain; Z72.0 Tobacco use; Z79.899 Other long term (current) drug therapy; Z28.310 Unvaccinated for COVID-19; Z79.891 Long term (current) use of opiate analgesic
CPT/HCPCS: 99281

== ENCOUNTER 2023-07-13 15:11 | Emergency (ER) | payer OTHER ==
[2023-07-13 15:39] VITALS: RESP 16; TEMP 98.8
--- NOTE | 2023-07-13 16:05 | ERPHSYRPT ---
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 Symptoms gradually began yesterday. No trauma no fever no neck pain. Patient has no meningeal signs. Mild photophobia. Symptoms are constant. Symptoms are moderate in intensity. Cell bright light worsening symptoms. No chest pain or shortness of breath. No nausea vomiting or diaphoresis. Patient voices no other complaints or concerns at this time. Portions of this note were created with voice recognition technology. There may be grammatical, spelling, punctuation or sound alike errors Timing/Duration: yesterday Quality: aching Head Pain Location: global Severity of Pain-Max: moderate Severity of Pain-Current: moderate Recent Head Trauma: no recent headache/trauma Modifying Factors: Improves With: exposure to light Associated Symptoms: denies symptoms Previous symptoms: no prior history, different symptoms Allergies/Adverse Reactions: No Known Drug Allergies Allergy (Verified 07/13/23 15:30) Home Medications: Bupropion HCl Xl 150 mg [Wellbutrin XL 150 MG] 150 mg PO DAILY 12/05/21 [History] Quetiapine Fumarate 100 mg [Seroquel 100 MG] 100 mg PO DAILY 12/05/21 [History] clonazePAM [Clonazepam] 0.5 mg PO BID PRN 12/05/21 [History] Norgestimate-Ethinyl Estradiol [Sprintec 28 Day Tablet] 1 each PO DAILY 07/13/23 [History] hydrOXYzine HCL [Hydroxyzine HCl] 10 mg PO TID PRN 07/13/23 [History] Hx Tetanus, Diphtheria Vaccination/Date Given: No Hx Influenza Vaccination/Date Given: No Hx Pneumococcal Vaccination/Date Given: No Travel Risk - International Travel Have you traveled outside of the country in past 3 weeks: No - Emerging Infectious Disease Are you exhibiting symptoms associated with any current EIDs: Yes Symptoms: Headaches/Body Aches/ - Review of Systems Constitutional: No Symptoms, No Fever, No Chills Eyes: No Symptoms Ears, Nose, & Throat: No Symptoms Respiratory: No Symptoms, No Cough, No Dyspnea Cardiac: No Symptoms, No Chest Pain, No Edema, No Syncope Abdominal/Gastrointestinal: No Symptoms, No Abdominal Pain, No Nausea, No Vomiting, No Diarrhea Genitourinary Symptoms: No Symptoms, No Dysuria Musculoskeletal: No Symptoms, No Back Pain, No Neck Pain Skin: No Symptoms, No Rash Neurological: No Symptoms, No Dizziness, No Focal Weakness, No Sensory Changes Psychological: No Symptoms Endocrine: No Symptoms Hematologic/Lymphatic: No Symptoms Immunological/Allergic: No Symptoms All Other Systems: Reviewed and Negative - Past Medical History Pertinent Past Medical History: Yes Neurological History: No Pertinent History ENT History: No Pertinent History Cardiac History: No Pertinent History Respiratory History: No Pertinent History Endocrine Medical History: No Pertinent History Musculoskeletal History: No Pertinent History GI Medical History: No Pertinent History History: No Pertinent History Psycho-Social History: Anxiety, Depression Female Reproductive Disorders: No Pertinent History - Past Surgical History Past Surgical History: Yes Neuro Surgical History: No Pertinent History Cardiac: No Pertinent History Respiratory: No Pertinent History Gastrointestinal: No Pertinent History Genitourinary: No Pertinent History Musculoskeletal: No Pertinent History Female Surgical History: No Pertinent History Other Surgical History: right ear, breast implants - Female History Hx Now: No - Social History Smoking Status: Current every day smoker How long have you smoked: 10 years Exposure to second hand smoke: Yes Drug Use: none Patient Lives Alone: No - Nursing Vital Signs Nursing Vital Signs: Initial Vital Signs Pulse Rate 64 07/13/23 15:30 Blood Pressure 163/81 07/13/23 15:30 O2 Sat by Pulse Oximetry 100 07/13/23 15:30 Pain Scale Pain Intensity 9 - Physical Exam General Appearance: no apparent distress Eye Exam: PERRL/EOMI Ears, Nose, Throat Exam: normal ENT inspection, TMs normal, pharynx normal, moist mucous membranes, other (Minimal tenderness bilateral mastoids. Overlying soft tissue intact. 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 Opacification of right mastoid) Ordered Tests: Active Orders 24 hr Category Date Time Status IV Insertion STAT Care 07/13/23 15:59 Active Pulse Oximetry (ED) STAT Care 07/13/23 15:59 Active HEAD WITHOUT CONTRAST [CT] Stat Exams 07/13/23 15:57 Completed CULTURE,URINE Stat Lab 07/13/23 16:08 Received HCG QUALITATIVE, URINE Stat Lab 07/13/23 16:08 Completed UA W/RFX UR CULTURE Stat Lab 07/13/23 16:08 Completed Medication Summary Generic Name Dose Route Start Last Admin Trade Name Freq PRN Reason Stop Dose Admin Ceftriaxone Sodium 1 gm in 100 mls @ 200 mls/hr 07/13/23 17:24 07/13/23 17:34 Rocephin 1 Gm / 100 Ml Nacl IV 07/13/23 17:53 200 mls/hr STAT ONE 200 mls/hr Administration Discontinued Medications Generic Name Dose Route Start Last Admin Trade Name Freq PRN Reason Stop Dose Admin Diphenhydramine HCl 25 mg 07/13/23 16:00 07/13/23 16:26 Diphenhydramine Hcl 50 Mg/Ml Vial IV 07/13/23 16:01 25 mg STAT ONE Administration Diphenhydramine HCl Confirm 07/13/23 16:24 Diphenhydramine Hcl 50 Mg/Ml Vial Administered 07/13/23 16:25 Dose 50 mg .ROUTE .STK-MED ONE Sodium Chloride 1,000 mls @ 999 mls/hr 07/13/23 15:59 07/13/23 17:31 Sodium Chloride 0.9% 1000 Ml IV 07/13/23 16:59 Infused .Q1H1M STA Infusion Sodium Chloride Confirm 07/13/23 16:24 Sodium Chloride 0.9% 1000 Ml Administered 07/13/23 16:25 Dose 1,000 mls @ ud .ROUTE .STK-MED ONE Ceftriaxone Sodium Confirm 07/13/23 17:32 Rocephin 1 Gm / 100 Ml Nacl Administered 07/13/23 17:33 Dose 1 gm in 100 mls @ ud IV .STK-MED ONE Ketorolac Tromethamine 30 mg 07/13/23 15:59 07/13/23 16:26 Ketorolac Tromethamine 30 Mg/Ml Inj IV 07/13/23 16:00 30 mg STAT ONE Administration Ketorolac Tromethamine Confirm 07/13/23 16:24 Ketorolac Tromethamine 30 Mg/Ml Inj Administered 07/13/23 16:25 Dose 30 mg .ROUTE .STK-MED ONE Prochlorperazine Edisylate 10 mg 07/13/23 15:59 07/13/23 16:26 Prochlorperazine Edisylate 10 Mg/2 Ml Vial IV 07/13/23 16:00 10 mg STAT ONE Administration Prochlorperazine Edisylate Confirm 07/13/23 16:24 Prochlorperazine Edisylate 10 Mg/2 Ml Vial Administered 07/13/23 16:25 Dose 10 mg .ROUTE .STK-MED ONE Lab/Rad Data: Laboratory Results 07/13/23 07/13/23 Range/Units 16:08 16:08 Urine Color Dark Yellow A (Yellow) Urine Appearance Turbid A (Clear) Urine pH 5.5 (4.6-8.0) Ur Specific [place] >=1.030 A (1.005-1.030) Urine Protein 30 (Negative) Urine Glucose (UA) Negative (Negative) mg/dL Urine Ketones 80 A (Negative) Urine Blood Negative (Negative) Urine Nitrite Negative (Negative) Urine Bilirubin Small A (Negative) Urine Urobilinogen 1.0 A (0.2) mg/dL Ur Leukocyte Esterase Trace A (Negative) U Hyaline Cast (Auto) 3-5 A (0-2) /LPF Urine Microscopic RBC 6-10 A (0-5) /HPF Urine Microscopic WBC 21-50 A (0-5) /HPF Ur Epithelial Cells Many A (None Seen) /HPF Urine Bacteria Moderate A (None Seen) /HPF Urine Culture Reflexed YES (NO) Urine HCG, Qual NEGATIVE (NEGATIVE) - Progress Progress: improved Air Movement: good Progress Note: 30-year-old female presents to our ED with a migraine headache. CT head negative for acute intracranial pathology. Incidental right mastoid opacification. Workup reveals a urinary tract infection. Patient received Rocephin in our ED. A prescription for Augmentin forwarded to patient's pharmacy to cover the mastoid as well as urine. Patient reassessed headache resolved. Patient is ready for discharge. Will discharge home. Patient agrees to follow-up with a primary care doctor within 48 hours for evaluation. Portions of this note were created with voice recognition technology. There may be grammatical, spelling, punctuation or sound alike errors Complexity problem addressed is moderate acute complicated. No critical care time. Complexity of data reviewed and analyzed is moderate. Test ordered test reviewed results analyzed and correlated clinically with history and physical examination. Risk of morbidity/mortality patient management is moderate. A prescription for Augmentin forwarded to patient's pharmacy. Vital stable. Time spent to discharge patient is approximately 15 minutes. Plan of care established for shared decision making. No social determinants of health presents impede follow-up. Portions of this note were created with voice recognition technology. There may be grammatical, spelling, punctuation or sound alike errors 07/13/23 17:37 Blood Culture(s) Obtained: No Antibiotics given: Yes Counseled pt/family regarding: lab results, diagnosis, need for follow-up, rad results - Departure Departure Disposition: Home Clinical Impression: Migraine, Inflammation of right mastoid Condition: Stable Critical Care Time: No Referrals: RUDDY ZHENG [Primary Care Provider] - Follow up/PCP as directed Additional Instructions: Discharge/Care Plan ANASTASIIA LANGLEY JESUS was seen on 07/13/23 in the Emergency Room. The patient was counseled regarding Diagnosis,Lab results, Imaging studies, need for follow up and when to return to the Emergency Room. Prescriptions given: Discharge Note I have spoken with the patient and/or caregivers. I have explained the patient's condition, diagnosis and treatment plan based on the information available to me at this time. I have answered the patient's and/or caregiver's questions and addressed any concerns. The patient and/or caregivers have as good understanding of the patient's diagnosis, condition and treatment plan as can be expected at this point. The vital signs have been stable. The patient's condition is stable and appropriate for discharge from the emergency department. The patient will pursue further outpatient evaluation with the primary care physician or other designated or consulting physician as outlined in the discharge instructions. The patient and/or caregivers are agreeable to this plan of care and follow-up instructions have been explained in detail. The patient and/or caregivers have received these instruction. The patient/and or caregivers are aware that any significant change in condition or worsening of symptoms should prompt an immediate return to this or the closest emergency department or call 911. Prescriptions: Amox Tr/Potass Clav. 875 mg [Augmentin 875-125 Tablet] 875 mg PO BID 7 Days #14 tablet
[2023-07-13 16:12] LABS: HCG URINE TEST NEGATIVE (NEGATIVE)
[2023-07-13 16:19] LABS: ADD URINE CULTURE? YES (NO); Appearance Turbid (Clear); Bacteria Moderate /HPF (None Seen); Bilirubin Small (Negative); Blood Negative (Negative); Epithelial Cells Many /HPF (None Seen); Glucose, Urine Negative (Negative); Ketones 80 (Negative); Leukocyte Esterase Trace (Negative); Nitrite Negative (Negative); Ph 5.5 (4.6-8.0); Protein,Urine Dip 30 (Negative); Specific Gravity >=1.030 (1.005-1.030); WBC 21-50 /HPF (0-5)
[2023-07-13] MEDS ORDERED: Sodium Chloride 0.9% 1000 ML 1,000 ML ONE (16:24)
[2023-07-13] MEDS ORDERED: Compazine 10 MG/2 ML ONE (16:24)
[2023-07-13] MEDS ORDERED: TORAdol 30 mg Injection ONE (16:24)
[2023-07-13] MEDS ORDERED: BENADRYL 50 MG/ML ONE (16:24)
[2023-07-13] MEDS: Sodium Chloride 0.9% 1000 ML 1,000 ML IV STA (16:25)
[2023-07-13] MEDS: TORAdol 30 mg Injection IV ONE (16:26)
[2023-07-13] MEDS: Compazine 10 MG/2 ML IV ONE (16:26)
[2023-07-13] MEDS: BENADRYL 50 MG/ML IV ONE (16:26)
--- NOTE | 2023-07-13 17:15 | XRAY ---
Indication: Frontal headache and dizziness. Multiple contiguous axial images obtained through the head without contrast. Comparison: September 25, 2019 Normal appearing brain parenchyma, ventricles, and bony calvarium. Stable complete opacification right mastoid air cells presumed inflammatory. Remaining visualized paranasal sinuses and left macerator cells are clear. Impression: Stable opacification right mastoid air cells presumed inflammatory. Remaining CT head without contrast exam continues to be normal.
[2023-07-13 17:28] VITALS: O2SAT 99
[2023-07-13] MEDS ORDERED: ROCEPHIN 1 GM / 100 ML NaCl 1 GM/100 ML IVPB IV ONE (17:32)
[2023-07-13] MEDS: ROCEPHIN 1 GM / 100 ML NaCl 1 GM/100 ML IVPB IV ONE (17:34)
[2023-07-13 18:21] VITALS: BP 111/67; PULSE 67
== END 2023-07-13 18:54 | disposition home or self-care (01) ==
LOC: ED 15:11
DX: G43.909 Migraine, unspecified, not intractable, without status migrainosus (principal); H70.91 Unspecified mastoiditis, right ear; Z79.899 Other long term (current) drug therapy; Z72.0 Tobacco use
CPT/HCPCS: 36000; 70450; 81001; 81025; 87086; 94760; 96374; 96375; 99284; J0696; J1200; J1885